=== PATIENT | female | born 1975 | race Caucasian/White ===

== ENCOUNTER 2017-04-09 08:05 | Inpatient (IN) | payer BC, OTHER ==
[2017-04-09] MEDS ORDERED: ELECTROLYTE-148 SOLN 1,000 ML IV SCH ×3 (08:10→09:00)
[2017-04-09] MEDS ORDERED: CITRIC ACID/SODIUM CITRATE 30 ML UNIT-DOSE CUP PO ONE ×2 (08:10→08:46)
[2017-04-09 09:04] VITALS: BMI 41.7
[2017-04-09] MEDS ORDERED: ONDANSETRON 4 MG/2 ML VIAL IVPB PRN (09:04)
[2017-04-09] MEDS ORDERED: ACETAMINOPHEN 325 MG TABLET (FP) PO PRN (09:04)
[2017-04-09] MEDS ORDERED: IBUPROFEN 600 MG TABLET (FP) PO PRN ×2 (09:04→10:44)
[2017-04-09] MEDS ORDERED: morphine SULFATE/Preservative Free 0.5 MG/ML (1cc Syringe) EP ONE (09:04)
[2017-04-09] MEDS ORDERED: IBUPROFEN 800 MG/8 ML IJ IVPB PRN ×2 (09:05→10:44)
[2017-04-09] MEDS ORDERED: TUBERCULIN PPD 5 TU/0.1ML SYRINGE (IN PATIENT USE ONLY) ID ONE (10:00)
[2017-04-09] MEDS ORDERED: WITCH HAZEL 50% (TUCKS) 40 PAD/JAR PAD TP PRN (10:44)
[2017-04-09] MEDS ORDERED: oxyCODONE HCL 5 MG TABLET PO PRN ×2 (10:44)
[2017-04-09] MEDS ORDERED: BENZOCAINE 28 GM HEMORRHOIDAL OINTMENT PR PRN (10:44)
[2017-04-09] MEDS ORDERED: BENZOCAINE 20% 57 GM BOTTLE TP PRN (10:44)
[2017-04-09] MEDS ORDERED: diphenhydrAMINE HCL 25 MG CAPSULE (FP) PO PRN (10:44)
[2017-04-09] MEDS ORDERED: SIMETHICONE 80 MG TAB.CHEW (FP) PO PRN (10:44)
[2017-04-09] MEDS ORDERED: METHYLERGONOVINE MALEATE 0.2 MG/1 ML AMP IM PRN (10:44)
[2017-04-09] MEDS ORDERED: OXYTOCIN 20 UNITS in 0.9% NS 1,000 ML IV SCH (10:45)
[2017-04-09] MEDS ORDERED: DEXTROSE 5%-LACTATED RINGERS 1,000 ML IV SCH (10:45)
[2017-04-09 10:48] LABS: ARTERIAL BLOOD GAS BASE EXCESS -0.7 meq/l (-2-2); ARTERIAL BLOOD GAS HCO3 24.6 meq/L (22-26); ARTERIAL BLOOD GAS pH 7.36 (7.35-7.45)
[2017-04-09 10:49] LABS: LPM/O2% 21%; PT. ON O2? NO; TYPE OF O2 ROOM AIR
[2017-04-09 10:50] LABS: ARTERIAL BLOOD GAS PO2 18.3 mmHg (80-100)
--- NOTE | 2017-04-09 15:54 | OP ---
DATE OF OPERATION: 04/09/2017 PREOPERATIVE DIAGNOSES: , 38.3 weeks' gestation, breech. Fibroid uterus. Advanced maternal age. POSTOPERATIVE DIAGNOSES: , 38.3 weeks' gestation, breech. Fibroid uterus. Advanced maternal age. PROCEDURE: Primary low segment transverse section. SURGEON: Eric Ag MD COLOR CHECKER ROVING OR YARN: Oj Stein MD ESTIMATED BLOOD LOSS: Five-hundred milliliters. FINDINGS: Baby's 9 and 9. He was in татьяна breech, right sacrum anterior. OPERATION: The patient was taken to the operating room and had adequate spinal anesthesia. Abdomen and perineum was prepped and draped. Pfannenstiel abdominal skin incision was made. Abdominal wall was cut [id number]. Anterior peritoneum was exposed and incised. Upon entering the abdominal cavity, the low uterine segment was identified and uterovesical fold of peritoneum established. Bladder was pushed down. Then, with the lower blade of the [place] retracting the pelvis, a low transverse uterine incision was made. Incision extended laterally. Amniotic sac was entered, clear fluid. Baby was in татьяна breech, right sacrum anterior position, which was delivered via breech without any difficulty. Placenta was delivered manually. The uterine cavity was cleaned of all remaining tissue. Uterus examination showed multiple, large myomas at the fundal area and 1 submucous myoma. Then, uterine incision was closed in 2 layers, first layer with 0 Biosyn continuous suture and the second layer with 0 Biosyn imbricating the first layer. Bladder flap was closed with 0 Biosyn continuous suture. Both tubes and ovaries were checked were normal. No active bleeding was seen. All the laparotomy sponge, needle and instrument counts were correct. The peritoneum was closed with 0 Biosyn continuous suture. Muscles were brought together with interrupted suture of 0 Biosyn. Fascia was closed with 0 Biosyn continuous suture, subcutaneous fat with interrupted suture of 0 Biosyn and the skin was closed with magali. Patient tolerated procedure well. Left the OR in good condition. ERIC AG M.D. /[id number]
[2017-04-09] MEDS: CEFAZOLIN (PRE-DOCKED) 50 ML IVPB SCH (17:45)
[2017-04-10] MEDS: CEFAZOLIN (PRE-DOCKED) 50 ML IVPB SCH ×2 (01:30→11:31)
--- NOTE | 2017-04-10 07:52 | PN ---
Post Progress Note - Subjective Subjective: Patient without acute complaints. Reports tolerating oral intake without nausea or vomiting. Ambulating without dizziness. Denies fevers or chills. Pain well controlled with oral pain medication. without difficulty. Passing flatus. Post Day: 1 Type of Delivery: Primary C/S Vital Signs: Vital Signs Temperature 98.8 F 04/10/17 05:58 Pulse Rate 85 04/10/17 05:58 Respiratory Rate 18 04/10/17 05:58 Blood Pressure 118/65 04/10/17 05:58 O2 Sat by Pulse Oximetry (%) Breast Exam: Yes: Engorged Uterus: Yes: Fundus Firm, Fundus below umbilicus Incision: Yes: Dressing dry and intact Abdomen/GI: Yes: Abdomen soft, Tender (incisional) Lochia: Yes: Serosa Lochia, amount: Small Extremities: Yes: Edema Activity: Ambulating Assessment/Plan 41 yo POD # 1 s/p 1 CD, afebrile, vital signs stable, ding well 1. Continue routine postoperative care. 2. AM CBC stable 3. Rh positive status, no rhogam indicated. 4. Encourage ambulation and incentive spirometer use 5. Continue oral pain medication 6. Anticipate discharge home postoperative day #3 or #4
[2017-04-10 08:26] LABS: BASOPHIL 0.3 % (0-2.0); EOSINOPHIL 0.6 % (0-4.5); MCH 30.2 pg (25.7-33.7); MCHC 34.7 g/dl (32.0-36.0); MEAN PLT VOLUME 8.9 fl (7.5-11.1); NEUTROPHILS 84.2 % (42.8-82.8); PLATELET COUNT 99 K/MM3 (134-434); RDW 14.7 % (11.6-15.6); WHITE BLOOD COUNT 9.2 K/mm3 (4.0-10.0)
[2017-04-10] MEDS ORDERED: DIPHTH,PERTUSS(ACELL),TET 0.5 ML DISP.SYRIN IM ONE (10:00)
--- NOTE | 2017-04-10 10:02 | PN ---
Progress Note (short form) - Note Progress Note: Post op day#1.S/P C section under spinal anesthesia with duramorph uneventful.Patient stable and does not c/o pain.No any anesthesia related problem.Patient Dc from the anesthesia care.
[2017-04-10] MEDS ORDERED: BISACODYL 10 MG SUPP.RECT RC PRN (10:44)
--- NOTE | 2017-04-11 05:08 | PN ---
Progress Note (short form) - Note Progress Note: pod 2 doing well, ambulating , no excess vaginal bleeding CBC, BMP 04/10/17 07:45 Last Vital Signs Temp Pulse Resp BP Pulse Ox 98.5 F 74 20 139/86 04/10/17 22:00 04/10/17 22:00 04/10/17 22:00 04/10/17 22:00 abdomen soft, no distension, no cva, incision dry, clean . no calf tenderness no excess vaginal bleeding plan ambulate, advance diet
[2017-04-11] MEDS: SENNOSIDES/DOCUSATE COMBO (SENNA PLUS) TABLET (UD) PO PRN (21:58)
[2017-04-12 08:29] LABS: BASOPHIL 0.4 % (0-2.0); MCHC 34.1 g/dl (32.0-36.0); MEAN CELL VOLUME 87.9 fl (80-96); MEAN PLT VOLUME 8.6 fl (7.5-11.1); NEUTROPHILS 80.6 % (42.8-82.8); PLATELET COUNT 148 K/MM3 (134-434); RDW 15.2 % (11.6-15.6)
--- NOTE | 2017-04-12 09:15 | PN ---
Post Progress Note - Subjective Subjective: Patient without acute complaints. Reports tolerating oral intake without nausea or vomiting. Ambulating without dizziness. Denies fevers or chills. Pain well controlled with oral pain medication. without difficulty. Passing flatus. Post Day: 3 Type of Delivery: Primary C/S Vital Signs: Vital Signs Temperature 98.4 F 04/12/17 07:57 Pulse Rate 61 04/12/17 07:57 Respiratory Rate 20 04/12/17 07:57 Blood Pressure 135/88 04/12/17 07:57 O2 Sat by Pulse Oximetry (%) Breast Exam: Yes: Soft Uterus: Yes: Fundus Firm, Fundus below umbilicus Incision: Yes: Sutures intact Abdomen/GI: Yes: Abdomen soft, Tender (mild incisional), Passing flatus, Tolerating PO. No: Abdominal Distention Lochia: Yes: Serosa Lochia, amount: Small Extremities: Yes: Calves non-tender Activity: Ambulating - Labs Labs: CBC WBC 8.0 K/mm3 (4.0-10.0) 04/12/17 07:20 RBC 3.76 M/mm3 (3.60-5.2) 04/12/17 07:20 Hgb 11.3 GM/dL (10.7-15.3) 04/12/17 07:20 Hct 33.1 % (32.4-45.2) 04/12/17 07:20 MCV 87.9 fl (80-96) 04/12/17 07:20 MCHC 34.1 g/dl (32.0-36.0) 04/12/17 07:20 RDW 15.2 % (11.6-15.6) 04/12/17 07:20 Plt Count 148 K/MM3 (134-434) D 04/12/17 07:20 MPV 8.6 fl (7.5-11.1) 04/12/17 07:20 Neutrophils % 80.6 % (42.8-82.8) 04/12/17 07:20 Lymphocytes % 11.2 % (8-40) 04/12/17 07:20 Monocytes % 5.8 % (3.8-10.2) 04/12/17 07:20 Eosinophils % 2.0 % (0-4.5) D 04/12/17 07:20 Basophils % 0.4 % (0-2.0) 04/12/17 07:20 Assessment/Plan 41 yo POD # 3 s/p 1 CD, afebrile, vital signs stable, ding well 1. Continue routine postoperative care. 2. Encourage ambulation and incentive spirometer use 3. Continue oral pain medication 4. Anticipate discharge home postoperative day #4
[2017-04-12] MEDS: SENNOSIDES/DOCUSATE COMBO (SENNA PLUS) TABLET (UD) PO PRN (22:04)
[2017-04-13 08:05] VITALS: BP 138/88; PULSE 68; TEMP 97.1
--- NOTE | 2017-04-13 08:25 | PN ---
Post Progress Note - Subjective Subjective: Patient without acute complaints. Reports tolerating oral intake without nausea or vomiting. Ambulating without dizziness. Denies fevers or chills. Pain well controlled with oral pain medication. without difficulty. Passing flatus. Post Day: 4 Type of Delivery: Primary C/S Vital Signs: Vital Signs Temperature 97.1 F L 04/13/17 08:04 Pulse Rate 68 04/13/17 08:04 Respiratory Rate 18 04/13/17 08:04 Blood Pressure 138/88 04/13/17 08:04 O2 Sat by Pulse Oximetry (%) Breast Exam: Yes: Soft Uterus: Yes: Fundus Firm, Fundus below umbilicus Incision: Yes: [place] intact (magali removed). No: Redness, Oozing Abdomen/GI: Yes: Abdomen soft, Passing flatus, Tolerating PO. No: Tender Lochia: Yes: Serosa Lochia, amount: Small Extremities: Yes: Edema (trace) Activity: Ambulating - Labs Labs: CBC WBC 8.0 K/mm3 (4.0-10.0) 04/12/17 07:20 RBC 3.76 M/mm3 (3.60-5.2) 04/12/17 07:20 Hgb 11.3 GM/dL (10.7-15.3) 04/12/17 07:20 Hct 33.1 % (32.4-45.2) 04/12/17 07:20 MCV 87.9 fl (80-96) 04/12/17 07:20 MCHC 34.1 g/dl (32.0-36.0) 04/12/17 07:20 RDW 15.2 % (11.6-15.6) 04/12/17 07:20 Plt Count 148 K/MM3 (134-434) D 04/12/17 07:20 MPV 8.6 fl (7.5-11.1) 04/12/17 07:20 Neutrophils % 80.6 % (42.8-82.8) 04/12/17 07:20 Lymphocytes % 11.2 % (8-40) 04/12/17 07:20 Monocytes % 5.8 % (3.8-10.2) 04/12/17 07:20 Eosinophils % 2.0 % (0-4.5) D 04/12/17 07:20 Basophils % 0.4 % (0-2.0) 04/12/17 07:20 Assessment/Plan 41 yo POD # 4 s/p 1 CD, afebrile, vital signs stable, ding well 1. Patient stable for discharge home today. 2. Patient encouraged to contact MD for: - Severe pain not controlled by oral pain medication - Fevers or chills - Nausea or vomiting, intolerance of oral intake - Incision redness, tenderness or discharge 3. Patient to follow up in office in 1-2 weeks for incision check, 4-6 weeks for visit
--- NOTE | 2017-04-14 12:56 | PATH ---
Surgical Pathology Report Patient Name: ROSIE GOMEZ [facility]. Rec. #: [id number] /Age/Gender: 1975 (Age: 41) / F Account: [id number] Location: [facility] OBS/CUTTING TORCH OPERATOR Taken: 04/09/2017 Received: 04/10/2017 Reported: 04/14/2017 Physicians: Edvin Ag M.D. Specimen(s) Received PLACENTA Clinical History , 38.3 gestational weeks Primary c/section Final Diagnosis PLACENTA, DELIVERY: FOCALLY DISRUPTED, SMALL (<400 GM), THIRD TRIMESTER PLACENTA WITH MODERATE INCREASE IN PREVILLOUS, PERIVILLOUS, AND PRECHORIONIC FIBRIN DEPOSITION, FOCAL INCREASE IN NUMBER OF SYNCYTIAL KNOTS, THREE VESSEL UMBILICAL CORD WITH VILAMENTOUS INSERTION, AND PLACENTAL MEMBRANES FOCAL CIRCUMMARGINATE INSERTION. Electronically Signed Matthew Gtz M.D. Gross Description The specimen is received fresh, labeled "placenta" and is a 330 gram, 14.0 x 10.5 x 3.3 cm placenta with attached membranes and umbilical cord. The attached membranes are luciano, translucent with focal opacities and display focal circummarginate insertion. The umbilical cord measures 14 cm in length and averages 1.0 cm in diameter. The cord displays velamentous insertion. No true knots or strictures are identified. Cut surface of the umbilical cord reveals 3 vessels. The surface is mason-blue with fibrin deposition and appropriate caliber vessels. The maternal surface is red-brown with focal defects. Sectioning reveals red-brown, spongy parenchyma. No focal lesions are identified. [employer] sections are submitted in three cassettes as follows: 1- membrane rolls and umbilical cord; 2-3- full thickness sections of placenta. [facility]
== END 2017-04-13 11:40 | disposition home or self-care (01) | DRG 766 ==
LOC: JLDR 08:05 → J3W 13:40
PROVIDERS: ADMIT Obstetrics & Gynecology; ATTEND Obstetrics & Gynecology
PROC: 10D00Z1 Extraction of Products of Conception, Low, Open Approach (ICD-10-PCS; principal; 2017-04-09)
DX: O32.1XX0 Maternal care for breech presentation, not applicable or unspecified (principal); O34.10 Maternal care for benign tumor of corpus uteri, unspecified trimester; D25.0 Submucous leiomyoma of uterus; Z3A.38 38 weeks gestation of pregnancy; Z37.0 Single live birth
CPT/HCPCS: 36415; 36600; 82803; 85025; 88307-TC; 90715; 94010

== ENCOUNTER 2021-09-11 04:29 | Day surgery (SDC) | payer BC, OTHER ==
[2021-09-07 13:22] VITALS: BMI 37.8
[2021-09-11] MEDS ORDERED: MIDAZOLAM HCL 2 MG/2 ML SINGLE DOSE VIAL ONE (12:09)
[2021-09-11] MEDS ORDERED: PROPOFOL 20 ML ONE (12:31)
[2021-09-11] MEDS ORDERED: IBUPROFEN 600 MG TABLET (FP) PO PRN (13:01)
[2021-09-11] MEDS ORDERED: ONDANSETRON 4 MG/2 ML VIAL IVPUSH PRN (13:01)
[2021-09-11] MEDS ORDERED: IBUPROFEN 800 MG/8 ML IJ IVPB PRN (13:01)
[2021-09-11] MEDS ORDERED: oxyCODONE HCL 5 MG TABLET PO PRN (13:01)
[2021-09-11] MEDS ORDERED: ELECTROLYTE-148 SOLN 1,000 ML IV SCH (13:15)
[2021-09-11 14:19] VITALS: PULSE 65
[2021-09-11 14:48] VITALS: BP 150/80; TEMP 98
== END 2021-09-11 14:45 | disposition home or self-care (01) ==
LOC: JASU-SURG 04:29
PROVIDERS: ATTEND Obstetrics & Gynecology
PROC: 0UB98ZZ Excision of Uterus, Via Natural or Artificial Opening Endoscopic (ICD-10-PCS; principal; 2021-09-11 12:00)
PROC: 0UB98ZX Excision of Uterus, Via Natural or Artificial Opening Endoscopic, Diagnostic (ICD-10-PCS; 2021-09-11 12:00)
PROC: 0UDB7ZX Extraction of Endometrium, Via Natural or Artificial Opening, Diagnostic (ICD-10-PCS; 2021-09-11 12:00)
DX: D25.9 Leiomyoma of uterus, unspecified (principal); N84.0 Polyp of corpus uteri
CPT/HCPCS: 81025; 94760